=== PATIENT | male | born 1955 | race Caucasian/White ===

== ENCOUNTER 2018-12-10 08:49 | Emergency (ER) | payer BC, SELFPAY ==
[2018-12-10] VITALS (17 sets, daily range): BP systolic 108–157; BP diastolic 57–75; PULSE 72–91; RESP 11–20; TEMP 37.1; O2SAT 88–98
--- NOTE | 2018-12-10 09:06 | ED.GENADUL_ITS ---
Discharge Plan Disposition Patient Disposition: HOME Condition: Stable Discharge Details Chief Complaint: Nk/Back Pain Clinical Impression: Spasm of back muscles Primary Care Provider: None,None ED Provider: Eddie Mckeon Home Meds and New Rx's Prescriptions: New methocarbamol 500 mg tablet 500 - 1,000 mg PO Q6H PRN (Reason: Back pain or spasm) Qty: 14 RF: 0 Continued hydrochlorothiazide 50 mg Tablet 50 mg PO DAILY RF: 0 diltiazem HCl [Cardizem] 120 mg Tablet 240 mg PO DAILY RF: 0 losartan 25 mg Tablet 25 mg PO DAILY RF: 0 Discharge Instructions Instructions: Muscle Spasm (ED) Additional Instructions: Please follow-up with regular doctor at home in [place] for recheck. As we discussed, your liver enzymes were slightly elevated, potentially due to recent increased alcohol use, and he should be rechecked. Home to rest today. Continue frequent sips of fluids to maintain hydration. Remove Lidoderm patch in 12 hours time. These are available [id number] and you may use them tomorrow if needed. Methocarbamol as needed for discomfort. May use ibuprofen, next dose this afternoon as well as Tylenol if needed for pain. Medical Decision Making 63-year-old male who lives in [place], here camping at local campground. States moved to [facility] 2 days ago with resultant left-sided achy discomfort that worsened significantly overnight. Now in moderate to severe pain. He denies to me chest pain, radiation to the groin, change to urine, or recent illness. He is mildly hypertensive with history of same, pulse 87, respirations 20, afebrile with normal oxygenation. Does seem that paraspinous spasm and posterior thoracic spasm is the most likely diagnosis, however given his age, hypertension, and severity of pain, I feel I must exclude aortic dissection, renal colic, or other underlying peritoneal finding. Patient had IV access established, given fluid bolus, analgesic. Laboratories obtained and patient referred for CT imaging. Blood pressure corrected to 132/63 following analgesia with subjective improvement in decreased pulse. Diagnostic studies: White blood cell count 5, hematocrit 43, platelets 185. Sodium 138, potassium 3.7, chloride 100, bicarb 25, BUN 8, creatinine 0.9, slight elevation of ALT at 111, AST 77, total bili 0.6. Troponin negative. Patient does admit to some increased alcohol use, discussed his liver enzymes and bili will require follow-up. This also may have placed him at risk for dehydration. CT images of chest, abdomen, pelvis, with out acute findings. Improved with medications, Lidoderm patch placed, consistent with left paraspinous muscular spasm probably due to overuse and subsequent dehydration. We will discharged home, mild muscle relaxant for discomfort, ongoing hydration, follow-up with PMD at home for recheck. Lab Data Lab results reviewed: Yes I reviewed the patient's lab results. Labs: Laboratory Results - last 24 hr 12/10/18 12/10/18 09:11 09:11 WBC 5.17 RBC 4.54 Hgb 15.2 Hct 43.0 MCV 94.7 MCH 33.5 H MCHC 35.3 RDW 12.6 Plt Count 185 MPV 9.4 Immature Gran % 0.4 Neutrophils % 57.0 Lymphocytes % 27.3 Monocytes % 9.5 Eosinophils % 5.4 Basophils % 0.4 Absolute Neutrophils 2.95 Absolute Lymphocytes 1.41 Absolute Monocytes 0.49 Absolute Eosinophils 0.28 Absolute Basophils 0.02 Sodium 138 Potassium 3.7 Chloride 100 Carbon Dioxide 25.9 Anion Gap 12.1 H BUN 8 Creatinine 0.90 Estimated GFR/1.73 m2 >= 60.00 Glucose 130 H Calcium 9.1 Magnesium 1.9 Total Bilirubin 0.6 AST 77 H ALT 111 H Alkaline Phosphatase 61 Troponin I < 0.05 Total Protein 7.8 Albumin 4.0 ECG Data Attestation: I personally reviewed and interpreted this ECG (s) as follows: Interpretation: Normal sinus rhythm, rate of 76, QRS is narrow, no ST segment elevation, DC unremarkable. HPI General Mode of arrival: ambulatory . Date/Time Provider Initiated Documentation: 12/10/18 08:50 . Limitations to Documentation: no limitations . Information obtained by: patient and family . History of Present Illness 63 year old M presents to the emergency department with the chief complaint of Left flank and back pain worsening overnight, described as severe, Quality is described as constant, and is localized to the back and left. Patient reports no radiation. Patient started experiencing this day(s) and it has been constant. No relieving factors improve symptom(s), Movement worsens symptoms . Patient notes denies chest pain, nausea/vomiting and rash. Patient did receive the following treatments prior to arrival, NSAID Related Data Home Medications Medication Instructions Recorded Confirmed diltiazem HCl [Cardizem] 240 mg PO DAILY 12/10/18 12/10/18 hydrochlorothiazide 50 mg PO DAILY 12/10/18 12/10/18 losartan 25 mg PO DAILY 12/10/18 12/10/18 methocarbamol 500 - 1,000 mg PO Q6H PRN #14 tab 12/10/18 Previous Rx's Medication Instructions Recorded methocarbamol 500 - 1,000 mg PO Q6H PRN #14 tab 12/10/18 Allergies Allergy/AdvReac Type Severity Reaction Status Date / Time Sulfa (Sulfonamide Allergy Unverified 12/10/18 09:00 Antibiotics) General Stated Complaint: Nk/Back Pain CASE: 3 Review of Systems Review of Systems Narrative: Denies chest pain, fall, injury, rash. No cough or fever. 8 systems reviewed and otherwise negative. [facility] Medical History Arrhythmia (Acute) Hypertension (Chronic) Surgical History (Updated 12/10/18 @ 09:07 by Zandra Chawla) H/O eye surgery (Acute) H/O knee surgery (Acute) History of shoulder surgery (Chronic) Social History Smoking/Tobacco Use Status: Former Tobacco Use Substance use type: does not use Do you feel safe at home: Yes Do you feel safe in your relationship?: Yes Exam Narrative Exam Narrative: GEN: awake, alert, oriented 3. In moderate to severe distress, well groomed, interactive. HEAD: Normocephalic, atraumatic ENT: Mucous membranes moist, oropharynx unremarkable, External ear exam unremarkable EYES: PERRL, EOMI NECK: Full ROM, no CORNELIA, no menigismus CHEST/RESP: Nontender, clear to auscultation bilateral, no wheeze/rhonchi/rales. Tender left lateral thoracic cage and left posterior paraspinous musculature with some spasm present. CARDIOVASCULAR: RRR, no murmur, rub gen. 2+ Rad pulse bilateral ABDOMEN: Soft, nontender, no mass. +Bowel sounds EXT: Full ROM, no edema, no rash Neuro: Grossly normal neurologic exam, conversant, interactive. Psych: Speech fluent, thoughts congruent, affect normal Course Vital Signs Vital signs: Vital Signs Temperature 37.1 C 12/10/18 08:54 Pulse 87 12/10/18 08:54 Respiratory Rate 20 12/10/18 08:54 Blood Pressure 157/71 H 12/10/18 08:54 Pulse Oximetry 97 12/10/18 08:54 Temperature 37.1 C 12/10/18 08:54 Temperature Source Skin 12/10/18 08:54 Pulse 87 12/10/18 08:54 Respiratory Rate 20 12/10/18 08:54 Respiratory Effort Non-Labored 12/10/18 08:57 Blood Pressure 157/71 H 12/10/18 08:54 Blood Pressure Position Sitting 12/10/18 08:54 Pulse Oximetry 97 12/10/18 08:54 Oxygen Delivery Method Room Air 12/10/18 08:54 Oxygen Flow Rate 0 12/10/18 08:54 Pain Level 10 12/10/18 08:54
[2018-12-10] MEDS: Normal Saline 1,000 ML 1000 ML IV (09:11)
[2018-12-10] MEDS: HYDROmorphone 2 MG/ML VIAL 1 MG IV (09:11)
[2018-12-10 09:20] LABS: Abs Immature Grans 0.02 k/cumm (0.0-0.09); Absolute Basophil Count 0.02 k/cumm (0.0-0.2); Absolute Eosinophil Count 0.28 k/cumm (0.0-0.7); Absolute Lymphocyte Count 1.41 k/cumm (1.2-3.4); Absolute Monocyte Count 0.49 k/cumm (0.11-0.7); Absolute Neutrophil Count 2.95 k/cumm (1.2-6.7); Basophils % 0.4; Eosinophils % 5.4; HGB 15.2 g/dL (13.5-17.5); Immature Grans % 0.4; Lymphocytes % 27.3; Mean Corp. HGB Concentration 35.3 g/dL (32.0-36.0); Mean Corpuscular Hemoglobin 33.5 pg (27.0-33.0); Mean Corpuscular Volume 94.7 fL (80-95); Mean Platelet Volume 9.4 fL (8.0-11.0); Monocytes % 9.5; Platelet Count 185 x1000/uL (130-400); RBC 4.54 m/cumm (4.50-6.00); RBC Distribution Width 12.6 % (11.8-14.1); White Blood Cell Count 5.17 k/cumm (4.4-10.8)
[2018-12-10] MEDS: diazePAM 10 MG/2 ML SYR 2.5 MG IVP (09:37)
[2018-12-10 09:38] LABS: ALT 111 U/L (16-63); AST 77 U/L (15-37); Alkaline Phosphatase 61 U/L (46-116); Anion Gap 12.1 mmol/L (3-11); BUN 8 mg/dL (7-18); Bilirubin, Total 0.6 mg/dL (0.2-1.0); CO2 25.9 mmol/L (21.0-32.0); Calcium 9.1 mg/dL (8.5-10.1); Chloride 100 mmol/L (98-107); Glucose 130 mg/dL (70-100); Magnesium 1.9 mg/dL (1.8-2.4); Potassium 3.7 mmol/L (3.5-5.1); Sodium 138 mmol/L (136-145); Total Protein 7.8 g/dL (6.4-8.2)
[2018-12-10] MEDS: Normal Saline Flush 10 ML SYR IVP ×2 (09:38→09:49)
[2018-12-10 09:40] LABS: Troponin I < 0.05 ng/mL (0.00-0.06)
[2018-12-10] MEDS: Omnipaque 350 MG/ML 100 ML BTL IJ (09:48)
--- NOTE | 2018-12-10 10:10 | DI.CT_ITS ---
EXAM: CT THORAX ABD/PEL CTA CLINICAL HISTORY: severe L flank and back pain. TECHNIQUE: Imaging Protocol: Axial computed tomography images of the chest, abdomen, and pelvis with coronal and sagittal reformatted images were created and reviewed CONTRAST MATERIAL: Intravenous: Omnipaque 350 Contrast volume:100 mL contrast route:IV - Oral: No COMPARISON: No exams were available for comparison FINDINGS: CHEST: Tracheobronchial tree: Patent where visualized. Mediastinum and Elizabeth: No dominant adenopathy or fluid collection. Pulmonary parenchyma: No consolidation or dominant measurable mass. No architectural distortion. Pleura: No effusion or pneumothorax. Aorta: There is no evidence of thoracic aortic dissection or aneurysm. Pulmonary arteries: No evidence of a pulmonary embolus is present. Heart: Mild cardiomegaly. Bones: Moderate degenerative changes are seen in the thoracic spine. ABDOMEN: Liver: There is diffuse fatty infiltration. There are a few hypodense lesions scattered within the li cindy. They are too small for further characterization. The likely reflect small cysts. No suspicious h epatic masses are present. The portal, superior mesenteric, and splenic veins are patent. Gallbladder and biliary tract: No radiodense calculus or dilation. Pancreas: Normal density, no abnormal calcifications or inflammatory process. Spleen: Normal. Kidneys: Normal size, contour and axis. There is a 2 mm nonobstructing stone in the upper pole of the right kidney. No masses seen. Adrenal glands: No masses seen. Aorta: There is no evidence of an abdominal aortic aneurysm of dissection. Celiac trunk and mesenteric arteries: No evidence of occlusion or significant stenosis. Renal arteries: No evidence of occlusion or significant stenosis. Iliac arteries: No evidence of occlusion or significant stenosis. Lymph nodes: No abdominal or pelvic adenopathy. PELVIS: Bladder: There is apparent bladder wall thickening. However the bladder is incompletely distended. Th e reproductive organs are unremarkable. Bowel: No obstruction or bowel wall thickening. Peritoneal cavity: No ascites, collection or mesenteric inflammatory response. Bones: There are degenerative changes present throughout the lumbar spine. IMPRESSION: 1. No evidence of acute arterial injury in the abdomen or pelvis 2. Thickening of the wall of the urinary bladder. While this may be due to underdistention, cystitis cannot be excluded. Please correlate clinically. DATA REPOSITORY: All CT scans at this facility are submitted to the National Radiology Data Registry (NRDR) Dose Index Registry (DIR) with the [employer] (A[employer]). RADIATION OPTIMIZATION: All CT scans at this facility use at least one of these dose optimization te chniques: automated exposure control; mA and/or kV adjustment per patient size (includes targeted exa ms where dose is matched to clinical indication); or iterative reconstruction.
[2018-12-10] MEDS: Ondansetron 4 MG/2 ML VIAL IVP (10:15)
[2018-12-10] MEDS: Ondansetron 4 MG/2 ML VIAL (10:59)
--- NOTE | 2018-12-10 11:20 | DI.VRAD_ITS ---
PROCEDURE INFORMATION: Exam: CT Angiography Chest With Contrast Exam date and time: 12/10/2018 9:58 AM Clinical history: 63 years old, male; Other: Severe back pain. ; Patient HX: Severe back pain, and left sided flank pain x2 days. Worsening pain, no injury. TECHNIQUE: Imaging protocol: Computed tomographic angiography of the chest with intravenous contrast. 3D rendering: MIP reconstructed images were created and reviewed. Radiation optimization: All CT scans at this facility use at least one of these dose optimization techniques: automated exposure control; mA and/or kV adjustment per patient size (includes targeted exams where dose is matched to clinical indication); or iterative reconstruction. Contrast material: OMNIPAQUE 350; Contrast volume: 100 ml; Contrast route: IV; COMPARISON: No relevant prior studies available. FINDINGS: Pulmonary arteries: Normal. No pulmonary emboli. Aorta: No evidence for aortic dissection or aneurysm. Lungs: Unremarkable. No consolidation. No masses. Pleural space: Unremarkable. No pneumothorax. No pleural effusion. Heart: Mild cardiomegaly. Lymph nodes: Unremarkable. No enlarged lymph nodes. Bones/joints: Mild thoracic spondylosis. Soft tissues: Unremarkable. Other findings: Respiratory motion noted. IMPRESSION: No evidence for acute abnormality in the chest. PROCEDURE INFORMATION: Exam: CT Angiography Abdomen and Pelvis With Contrast Exam date and time: 12/10/2018 9:58 AM Clinical history: 63 years old, male; Other: Severe back pain. ; Patient HX: Severe back pain, and left sided flank pain x2 days. Worsening pain, no injury. TECHNIQUE: Imaging protocol: Computed tomographic angiography of the abdomen and pelvis with intravenous contrast material. 3D rendering: MIP reconstructed images were created and reviewed. Radiation optimization: All CT scans at this facility use at least one of these dose optimization techniques: automated exposure control; mA and/or kV adjustment per patient size (includes targeted exams where dose is matched to clinical indication); or iterative reconstruction. COMPARISON: No relevant prior studies available. FINDINGS: VASCULATURE: Aorta: No aortic aneurysm. No aortic dissection. Celiac trunk and mesenteric arteries: No occlusion or significant stenosis. Renal arteries: No occlusion or significant stenosis. Right iliac arteries: No occlusion or significant stenosis. Left iliac arteries: No occlusion or significant stenosis. ABDOMEN: Liver: Fatty liver. Tiny low-density hepatic lesions, indeterminate. These are seen in the posterior segment of the right lobe. Gallbladder and bile ducts: See Liver Finding. Pancreas: Unremarkable. No mass. No ductal dilation. Spleen: Unremarkable. No splenomegaly. Adrenals: Unremarkable. No mass. Kidneys and ureters: Probable nonobstructing right renal calculus. Stomach and bowel: Unremarkable. No obstruction. No mucosal thickening. Appendix: No evidence of appendicitis. PELVIS: Bladder: The bladder is not well-distended however there appears to be some degree of wall thickening. Reproductive: Unremarkable as visualized. ABDOMEN and PELVIS: Intraperitoneal space: Unremarkable. No free air. No significant fluid collection. Bones/joints: Moderate lumbar spondylosis. Soft tissues: There are small bilateral fat containing inguinal hernias. Lymph nodes: Unremarkable. No enlarged lymph nodes. IMPRESSION: Probable degree of cystitis. COMMENT: Preliminary interpretation is based on receipt of 3226 image(s). A final report will be issued subsequently. Dictated and Authenticated by: Ijeoma Hooper MD. Ordering:ERVIN Morgan MD
[2018-12-10] MEDS: Acetaminophen 500 MG TAB 1000 MG PO (11:38)
[2018-12-10] MEDS: Lidocaine 5% Patch 1 PATCH TP (11:38)
[2018-12-10 13:30] LABS: Bilirubin Negative (Negative); Blood Trace-intact (Negative); Clarity Clear (Clear); Glucose Negative (Negative); Ketones Negative (Negative); Leukocyte Esterase Negative (Negative); Nitrite Negative (Negative); Specific Gravity <= 1.005 (1.005-1.025); Urobilinogen 0.2 EU/dL (Up TO 0.2); pH 5.5 (5-8)
[2018-12-10 13:39] LABS: Bacteria Negative HPF (Negative); C & S Indicated? No; Casts Negative LPF (Negative); Crystals Negative HPF (Negative); Epithelial Cells Few HPF (Negative); Mucus Negative (Negative); RBC 0-2 (0-2); WBC Negative HPF (0-5)
== END 2018-12-10 14:00 | disposition home or self-care (01) ==
PROVIDERS: Emergency Provider Emergency Medicine
DX: M62.830 Muscle spasm of back (principal); I10 Essential (primary) hypertension
CPT/HCPCS: 36415; 74177; 80053; 96361; 96374; 96375; 96376; 99284; 81003; 81015; 83735; 84484; 85025; J2405; J3360; J3490